=== PATIENT | female | born 1960 | race African-American/Black ===

== ENCOUNTER 2017-03-06 17:19 | Emergency (ER) | payer BC ==
--- NOTE | 2017-03-06 18:15 | ER Document Report ---
ED Medical Screen (RME) - General Mode of Arrival: Ambulatory Information source: Patient TRAVEL OUTSIDE OF THE [place] IN LAST 30 DAYS: No - General Chief Complaint: Feet Swelling Stated Complaint: EYE PAIN,URINARY ISSUES,LEGS AND ARM SWELLING Time Seen by Provider: 03/06/17 18:04 Notes: GENERAL: Alert, interacts well. No acute distress. EYES: Right greater than left conjuctival injection. LUNGS: Clear to auscultation bilaterally, no wheezes, rales, or rhonchi. No respiratory distress. HEART: Regular rate and rhythm. No murmurs, gallops, or rubs. EXTREMITIES: . 1+ pitting edema in BLE. PSYCH: Affect was somewhat flat. I have greeted and performed a rapid initial assessment of this patient. A comprehensive ED assessment and evaluation of the patient, analysis of test results and completion of the medical decision making process will be conducted by additional ED providers. (FARIDA FLORIAN) - HPI Notes: 03/06/17 18:21 56-year-old female with past medical history of hypertension presents with multiple complaints. Symptoms have been present now for quite a while though her latest complaint appears to be burning in both of her eyes right greater than left for which she has had for a couple of days. Apparently she has had a little discharge from that. She has also noticed over the last month or so increasing swelling in her legs and hands. She denies chest pain or breathing difficulty. Of note she is very hypertensive and has not seen a doctor in over a year. She had been on medication prior for her hypertension. In addition to this she has had some slight decreased memory over a long period of time, some long-standing urinary incontinence, and multiple generalized other complaints more so from her family who she states made her come to the emergency department. (NAPOLEON VELAZQUEZ) - Related Data Allergies/Adverse Reactions: prochlorperazine edisylate [From Compazine] Allergy (Severe, Verified 03/06/17 17:39) dystonic prochlorperazine maleate [From Compazine] Allergy (Severe, Verified 03/06/17 17: 39) dystonic Past Medical History - Past Medical History Cardiac Medical History: Reports: Hx Hypertension Denies: Hx Coronary Artery Disease Neurological Medical History: Denies: Hx Cerebrovascular Accident, Hx Migraine Endocrine Medical History: Denies: Hx Diabetes Mellitus Type 1, Hx Diabetes Mellitus Type 2 Renal/ Medical History: Denies: Hx Peritoneal Dialysis Past Surgical History: Reports: Hx Cholecystectomy - Immunizations Hx Diphtheria, Pertussis, Tetanus Vaccination: Yes - Vital signs Vitals: Temp Pulse Resp BP Pulse Ox 98.4 F 67 16 232/124 H 98 03/06/17 18:01 03/06/17 18:01 03/06/17 18:01 03/06/17 18:01 03/06/17 18:01 - Vital Signs Vital signs: Temp Pulse Resp BP Pulse Ox 98.4 F 67 16 232/124 H 98 03/06/17 18:01 03/06/17 18:01 03/06/17 18:01 03/06/17 18:01 03/06/17 18:01
--- NOTE | 2017-03-06 19:07 | RADIOLOGY REPORT (SQ) ---
EXAM DESCRIPTION: CHEST PA/LAT COMPLETED DATE/TIME: 03/06/2017 6:58 pm REASON FOR STUDY: HTN COMPARISON: 08/02/2011 EXAM PARAMETERS: NUMBER OF VIEWS: two views TECHNIQUE: Digital Frontal and Lateral radiographic views of the chest acquired. RADIATION DOSE: NA LIMITATIONS: none FINDINGS: LUNGS AND PLEURA: No opacities, masses or pneumothorax. No pleural effusion. MEDIASTINUM AND HILAR STRUCTURES: No masses or contour abnormalities. HEART AND VASCULAR STRUCTURES: Heart stable in size. No evidence for failure. BONES: No acute findings. HARDWARE: None in the chest. OTHER: No other significant finding. IMPRESSION: NO ACUTE CARDIOPULMONARY PROCESS. NO SIGNIFICANT CHANGE FROM PRIOR STUDY. TECHNICAL DOCUMENTATION: JOB ID: [id number] [employer]- All Rights Reserved
[2017-03-06 19:11] LABS: ABSOLUTE EOSINOPHILS # (AUTO) 0.2 10^3/uL (0.0-0.6); ABSOLUTE LYMPHOCYTES (AUTO) 2.1 10^3/uL (0.5-4.7); ABSOLUTE MONOCYTES (AUTO) 0.4 10^3/uL (0.1-1.4); ABSOLUTE NEUT (AUTO) 3.8 10^3/uL (1.7-8.2); BASOPHILS % (AUTO) 0.7 % (0-2); EOSINOPHILS % (AUTO) 2.6 % (0-6); HEMATOCRIT 41.5 % (36.0-47.0); HEMOGLOBIN 13.5 g/dL (12.0-15.5); LYMPHOCYTES % (AUTO) 32.1 % (13-45); MEAN CORPUSCULAR HEMOGLOBIN 27.2 pg (27.0-33.4); MEAN CORPUSCULAR HGB CONC 32.5 g/dL (32.0-36.0); MEAN CORPUSCULAR VOLUME 84 fl (80-97); MONOCYTES % (AUTO) 6.8 % (3-13); RED BLOOD COUNT 4.95 10^6/uL (3.72-5.28); SEGMENTED NEUTROPHILS % (AUTO) 57.8 % (42-78); WHITE BLOOD COUNT 6.5 10^3/uL (4.0-10.5)
[2017-03-06 19:23] LABS: APPEARANCE,URINE CLEAR; BILIRUBIN,URINE NEGATIVE (NEGATIVE); GLUCOSE, URINE NEGATIVE (NEGATIVE); KETONES,URINE NEGATIVE (NEGATIVE); LEUKOCYTE ESTERASE,URINE TRACE (NEGATIVE); NITRITE,URINE NEGATIVE (NEGATIVE); PROTEIN,URINE NEGATIVE (NEGATIVE); URINE SPECIFIC GRAVITY 1.015; UROBILINOGEN,URINE NEGATIVE mg/dL (<2.0)
[2017-03-06 19:27] LABS: ALANINE AMINOTRANSFERASE 43 U/L (9-52); ALBUMIN 4.5 g/dL (3.5-5.0); ALKALINE PHOSPHATASE 120 U/L (38-126); ANION GAP 12 (5-19); ASPARTATE AMINO TRANSFERASE 40 U/L (14-36); BILIRUBIN,DIRECT 0.3 mg/dL (0.0-0.4); BILIRUBIN,TOTAL 0.5 mg/dL (0.2-1.3); BLOOD UREA NITROGEN 14 mg/dL (7-20); CALCIUM 9.7 mg/dL (8.4-10.2); CARBON DIOXIDE 32 mmol/L (22-30); CHLORIDE 101 mmol/L (98-107); GLUCOSE 85 mg/dL (75-110); POTASSIUM 3.9 mmol/L (3.6-5.0); SODIUM 144.5 mmol/L (137-145); TOTAL PROTEIN 7.5 g/dL (6.3-8.2)
[2017-03-06] MEDS ORDERED: LABETALOL HCL INJ 20 MG/4 ML DISP.SYRIN IV ONE (21:53)
[2017-03-06] MEDS ORDERED: HYDROCHLOROTHIAZIDE 25 MG TABLET PO ONE (23:03)
[2017-03-06] MEDS ORDERED: LISINOPRIL 10 MG TABLET PO ONE (23:03)
--- NOTE | 2017-03-06 23:04 | EKG REPORT ---
SEVERITY:- ABNORMAL ECG - SINUS RHYTHM LVH WITH SECONDARY REPOLARIZATION ABNORMALITY : Confirmed by: Anson Crowder 06-Mar-2017 23:03:15
--- NOTE | 2017-03-06 23:13 | ER Document Report ---
ED General - General Chief Complaint: Feet Swelling Stated Complaint: EYE PAIN,URINARY ISSUES,LEGS AND ARM SWELLING Time Seen by Provider: 03/06/17 18:04 Mode of Arrival: Ambulatory Information source: Patient, Relative TRAVEL OUTSIDE OF THE [place] IN LAST 30 DAYS: No - HPI Onset: Other - months Associated symptoms: None Exacerbated by: Denies Relieved by: Denies Similar symptoms previously: Yes Recently seen / treated by doctor: No Notes: Has a history of hypertension for which she was on medication. She states that she was seen in the emergency department filled the prescription took them and then never followed up with the primary medical doctor. She does have [employer] she works on [employer]. - Related Data Allergies/Adverse Reactions: prochlorperazine edisylate [From Compazine] Allergy (Severe, Verified 03/06/17 17:39) dystonic prochlorperazine maleate [From Compazine] Allergy (Severe, Verified 03/06/17 17: 39) dystonic Past Medical History - General Information source: Patient, Relative - Social History Smoking Status: Never Smoker Frequency of alcohol use: None Drug Abuse: None Lives with: Family Family History: Reviewed & Not Pertinent Patient has suicidal ideation: No Patient has homicidal ideation: No - Past Medical History Cardiac Medical History: Reports: Hx Hypertension Denies: Hx Coronary Artery Disease Neurological Medical History: Denies: Hx Cerebrovascular Accident, Hx Migraine Endocrine Medical History: Denies: Hx Diabetes Mellitus Type 1, Hx Diabetes Mellitus Type 2 Renal/ Medical History: Denies: Hx Peritoneal Dialysis Psychiatric Medical History: Reports: None Infectious Medical History: Reports: None Past Surgical History: Reports: Hx Cholecystectomy - Immunizations Hx Diphtheria, Pertussis, Tetanus Vaccination: Yes Review of Systems - Review of Systems Constitutional: No symptoms reported EENT: Eye pain Cardiovascular: No symptoms reported Respiratory: No symptoms reported Gastrointestinal: No symptoms reported Genitourinary: Frequency Female Genitourinary: No symptoms reported Musculoskeletal: No symptoms reported Skin: No symptoms reported Hematologic/Lymphatic: No symptoms reported Neurological/Psychological: No symptoms reported Physical Exam - Vital signs Vitals: Temp Pulse Resp BP Pulse Ox 98.4 F 67 16 232/124 H 98 03/06/17 18:01 03/06/17 18:01 03/06/17 18:01 03/06/17 18:01 03/06/17 18:01 Interpretation: Hypertensive - Notes Notes: PHYSICAL EXAMINATION: GENERAL: Well-appearing, well-nourished and in no acute distress. HEAD: Atraumatic, normocephalic. EYES: Pupils equal round and reactive to light, extraocular movements intact, conjunctiva are normal. ENT: Nares patent, oropharynx clear without exudates. Moist mucous membranes. NECK: Normal range of motion, supple without lymphadenopathy LUNGS: Breath sounds clear to auscultation bilaterally and equal. No wheezes rales or rhonchi. HEART: Regular rate and rhythm without murmurs ABDOMEN: Soft, nontender, nondistended abdomen. No guarding, no rebound. No masses appreciated. Female : deferred Musculoskeletal: Normal range of motion, no pitting or edema. No cyanosis. NEUROLOGICAL: Cranial nerves grossly intact. Normal speech, normal gait. Normal sensory, motor exams PSYCH: Normal mood, normal affect. SKIN: Warm, Dry, normal turgor, no rashes or lesions noted. Course - Re-evaluation Re-evalutation: 03/06/17 23:22 Blood pressure came down to 186/96 with a heart rate of 59. I did place the patient back on her lisinopril HCTZ. I did go over the effects of uncontrolled hypertension including blindness, cardiac issues, end-stage renal disease with hemodialysis, as well as stroke. She and daughter verbalized understanding. I did tell the patient to call the primary medical doctor whose name I gave her tomorrow morning for follow-up appointment. - Vital Signs Vital signs: Temp Pulse Resp BP Pulse Ox 98.4 F 67 17 208/103 H 96 03/06/17 18:01 03/06/17 18:01 03/06/17 22:48 03/06/17 22:48 03/06/17 22:48 - Laboratory Result Diagrams: 03/06/17 18:38 03/06/17 18:38 Laboratory results interpreted by me: 03/06/17 03/06/17 18:38 18:38 Carbon Dioxide 32 H AST 40 H Ur Leukocyte Esterase TRACE H - Diagnostic Test Radiology reviewed: Image reviewed, Reports reviewed Radiology results interpreted by me: 03/06/17 23:24 no acute findings on CXR - EKG Interpretation by Me EKG shows normal: Sinus rhythm Rate: Bradycardia Rhythm: NSR Voltage: Consistant with LVH When compared to previous EKG there are: No significant change - compared with EKG 05/09/2015 Discharge - Discharge Clinical Impression: Medical non-compliance, Uncontrolled hypertension Condition: Stable Disposition: HOME, SELF-CARE Instructions: High Blood Pressure, Requiring Treatment ([facility]) Prescriptions: Lisinopril/Hydrochlorothiazide [Lisinopril-Hctz 20-25 mg Tab] 1 each PO DAILY # 30 tablet Forms: Elevated Blood Pressure Referrals: JARAD ANDRADE DO [NO LOCAL MD] - Follow up tomorrow (Call tomorrow for an appointrment)
[2017-03-06 23:43] VITALS: BP 206/108
== END 2017-03-06 23:50 | disposition home or self-care (01) ==
LOC: ER 17:19
DX: I10 Essential (primary) hypertension (principal); M79.89 Other specified soft tissue disorders; Z90.49 Acquired absence of other specified parts of digestive tract; Z91.14 Patient's other noncompliance with medication regimen
CPT/HCPCS: 93005; 99284; 36415; 85025; 80053; 81001; 71020; 93010; J3490

== ENCOUNTER 2017-03-16 10:07 | Emergency (ER) | payer BC ==
[2017-03-16 11:12] LABS: ABSOLUTE EOSINOPHILS # (AUTO) 0.2 10^3/uL (0.0-0.6); ABSOLUTE LYMPHOCYTES (AUTO) 1.5 10^3/uL (0.5-4.7); ABSOLUTE MONOCYTES (AUTO) 0.4 10^3/uL (0.1-1.4); ABSOLUTE NEUT (AUTO) 3.7 10^3/uL (1.7-8.2); BASOPHILS % (AUTO) 0.7 % (0-2); EOSINOPHILS % (AUTO) 3.4 % (0-6); HEMATOCRIT 40.5 % (36.0-47.0); HEMOGLOBIN 13.3 g/dL (12.0-15.5); HGB HCT DIFFERENCE -0.6; LYMPHOCYTES % (AUTO) 25.5 % (13-45); MEAN CORPUSCULAR HEMOGLOBIN 27.5 pg (27.0-33.4); MEAN CORPUSCULAR HGB CONC 32.8 g/dL (32.0-36.0); MEAN CORPUSCULAR VOLUME 84 fl (80-97); MONOCYTES % (AUTO) 7.2 % (3-13); RED BLOOD COUNT 4.83 10^6/uL (3.72-5.28); RED CELL DISTRIBUTION WIDTH 13.5 % (11.5-14.0); SEGMENTED NEUTROPHILS % (AUTO) 63.2 % (42-78); WHITE BLOOD COUNT 5.8 10^3/uL (4.0-10.5)
[2017-03-16 11:14] LABS: APPEARANCE,URINE CLEAR; BILIRUBIN,URINE NEGATIVE (NEGATIVE); GLUCOSE, URINE NEGATIVE (NEGATIVE); KETONES,URINE NEGATIVE (NEGATIVE); LEUKOCYTE ESTERASE,URINE NEGATIVE (NEGATIVE); NITRITE,URINE NEGATIVE (NEGATIVE); PROTEIN,URINE NEGATIVE (NEGATIVE); URINE SPECIFIC GRAVITY 1.004; UROBILINOGEN,URINE NEGATIVE mg/dL (<2.0)
[2017-03-16 11:33] LABS: ALANINE AMINOTRANSFERASE 45 U/L (9-52); ALKALINE PHOSPHATASE 121 U/L (38-126); ANION GAP 8 (5-19); ASPARTATE AMINO TRANSFERASE 37 U/L (14-36); BILIRUBIN,DIRECT 0.1 mg/dL (0.0-0.4); BILIRUBIN,TOTAL 0.5 mg/dL (0.2-1.3); BLOOD UREA NITROGEN 15 mg/dL (7-20); CALCIUM 10.2 mg/dL (8.4-10.2); CARBON DIOXIDE 35 mmol/L (22-30); CHLORIDE 101 mmol/L (98-107); CREATINE KINASE 104 U/L (30-135); GLUCOSE 82 mg/dL (75-110); POTASSIUM 3.7 mmol/L (3.6-5.0); SODIUM 144.3 mmol/L (137-145); TOTAL PROTEIN 6.7 g/dL (6.3-8.2)
[2017-03-16] MEDS ORDERED: LIDOCAINE 5% (700 MG) TRANSDERMAL ADH..PATCH TP ONE (12:38)
--- NOTE | 2017-03-16 12:40 | ER Document Report ---
ED General - General Chief Complaint: Thigh Pain Stated Complaint: LEG PAIN Time Seen by Provider: 03/16/17 11:28 TRAVEL OUTSIDE OF THE [place] IN LAST 30 DAYS: No - HPI Patient complains to provider of: Right thigh pain Notes: Patient coming in for evaluation of right thigh pain. Patient states ongoing since last night patient states currently pain 3 states last night she had an episode of right thigh pain making it unable for her to walk. Patient denies any Lipitor orOther medications that may cause rhabdomyolysis. Patient resting comfortably upon my evaluation per - Related Data Allergies/Adverse Reactions: prochlorperazine edisylate [From Compazine] Allergy (Severe, Verified 03/16/17 10:08) dystonic prochlorperazine maleate [From Compazine] Allergy (Severe, Verified 03/16/17 10: 08) dystonic Past Medical History - Social History Smoking Status: Never Smoker Frequency of alcohol use: None Drug Abuse: None Family History: Reviewed & Not Pertinent Patient has suicidal ideation: No Patient has homicidal ideation: No - Past Medical History Cardiac Medical History: Reports: Hx Hypertension Denies: Hx Coronary Artery Disease Neurological Medical History: Denies: Hx Cerebrovascular Accident, Hx Migraine Endocrine Medical History: Denies: Hx Diabetes Mellitus Type 1, Hx Diabetes Mellitus Type 2 Renal/ Medical History: Denies: Hx Peritoneal Dialysis Past Surgical History: Reports: Hx Cholecystectomy - Immunizations Hx Diphtheria, Pertussis, Tetanus Vaccination: Yes Review of Systems - Review of Systems Constitutional: No symptoms reported EENT: No symptoms reported Cardiovascular: No symptoms reported Respiratory: No symptoms reported Gastrointestinal: No symptoms reported Genitourinary: No symptoms reported Female Genitourinary: No symptoms reported Musculoskeletal: Other - myalagia Skin: No symptoms reported Hematologic/Lymphatic: No symptoms reported Neurological/Psychological: No symptoms reported -: Yes All other systems reviewed and negative Physical Exam - Vital signs Vitals: Temp Pulse Resp BP Pulse Ox 98.2 F 61 14 216/86 H 99 03/16/17 10:14 03/16/17 10:14 03/16/17 10:14 03/16/17 10:14 03/16/17 10:14 Interpretation: Normal - General General appearance: Appears well, Alert - HEENT Head: Normocephalic, Atraumatic Eyes: Normal Pupils: PERRL - Respiratory Respiratory status: No respiratory distress Chest status: Nontender Breath sounds: Normal Chest palpation: Normal - Cardiovascular Rhythm: Regular Heart sounds: Normal auscultation Murmur: No - Abdominal Inspection: Normal Distension: No distension Bowel sounds: Normal Tenderness: Nontender Organomegaly: No organomegaly - Back Back: Normal, Nontender - Extremities General upper extremity: Normal inspection, Nontender, Normal color, Normal ROM , Normal temperature General lower extremity: Normal inspection, Nontender, Normal color, Normal ROM , Normal temperature, Normal weight bearing, Other - No trauma contusion noted to clinical signs on evaluation of the right upper thigh. Patient has popliteal pulses intact no calf tenderness no swelling of the leg consistent with DVT. - Neurological Neuro grossly intact: Yes Cognition: Normal Orientation: AAOx4 Amor Coma Scale Eye Opening: Spontaneous [place] Coma Scale Verbal: Oriented [place] Coma Scale Motor: Obeys Commands [place] Coma Scale Total: 15 Speech: Normal Motor strength normal: LUE, RUE, LLE, RLE Sensory: Normal - Psychological Associated symptoms: Normal affect, Normal mood - Skin Skin Temperature: Warm Skin Moisture: Dry Skin Color: Normal Course - Re-evaluation Re-evalutation: 03/16/17 17:24 Patient coming in for evaluation of right thigh pain. Patient will be discharged on follow-up primary care physician noted signs of critical etiology. More likely underlying muscle skeletal issues such as muscle spasm. - Vital Signs Vital signs: Temp Pulse Resp BP Pulse Ox 98.2 F 61 14 169/94 H 99 03/16/17 10:14 03/16/17 10:14 03/16/17 13:00 03/16/17 13:00 03/16/17 13:00 - Laboratory Result Diagrams: 03/16/17 10:45 03/16/17 10:45 Laboratory results interpreted by me: 03/16/17 10:45 Carbon Dioxide 35 H Est GFR (Non-Af Amer) 58 L AST 37 H Discharge - Discharge Clinical Impression: Thigh pain Qualifiers: Laterality: right Qualified Code(s): M79.651 - Pain in right thigh Condition: Good Disposition: HOME, SELF-CARE Instructions: Muscle Strain ([facility]), Myalagia (Muscle Pain) ([facility]) Additional Instructions: Laboratory studies today did not reveal any signs of significant pathology for your thigh pain. Your examination also does not reveal any critical pathology. Would recommend using the Lidoderm patch that we gave you for pain he may also take Tylenol and Motrin together to aid in pain if it becomes severe again. Return to ER symptoms worsen. Forms: Return to Work Referrals: ROSALVA DIAMOND PA-C [Primary Care Provider] - Follow up in 1 week
[2017-03-16 13:23] VITALS: BP 169/94
== END 2017-03-16 13:20 | disposition home or self-care (01) ==
LOC: ER 10:07
DX: M79.1 Myalgia (principal); I10 Essential (primary) hypertension; Z88.8 Allergy status to other drugs, medicaments and biological substances
CPT/HCPCS: 36415; 80053; 81001; 82550; 83735; 85025; 99283

== ENCOUNTER 2018-05-12 20:16 | Emergency (ER) | payer BC ==
--- NOTE | 2018-05-12 22:14 | RADIOLOGY REPORT (SQ) ---
EXAM DESCRIPTION: XR HAND 3 OR MORE VIEWS COMPLETED DATE/TME: 05/12/2018 21:02 CLINICAL HISTORY: 57 years, Female, pain, swelling COMPARISON: None. NUMBER OF VIEWS: TECHNIQUE: LIMITATIONS: None. FINDINGS: There is questionable subtle fracture involving the base of the distal phalanx of the fourth finger, laterally. There is soft tissue swelling involving the fourth finger. Mineralization of bone appears normal. IMPRESSION: Questionable fracture of the base of the distal phalanx of the fourth finger, laterally. Please correlate clinically. copyright 2010 [employer]- All Rights Reserved
[2018-05-12] MEDS ORDERED: ACETAMINOPHEN 325 MG TABLET PO ONE (22:47)
[2018-05-12] MEDS ORDERED: IBUPROFEN 600 MG TABLET PO ONE (22:47)
--- NOTE | 2018-05-12 22:53 | ER Document Report ---
ED General - General Chief Complaint: Hand Pain Stated Complaint: RIGHT HAND PAIN Time Seen by Provider: 05/12/18 21:02 Primary Care Provider: AMARILIS DESIR DO [ACTIVE STAFF] - Follow up in 3-5 days Notes: Patient is a 57-year-old female without chronic medical problems beyond essential hypertension who presents today complaining of pain to her right fourth finger that has been ongoing for the past week. Patient states that approximately 1 week ago she noted a lot of bruising along the lateral aspect of the finger. She states that touching the area or moving it worsens a dull, throbbing, constant pain. She has not tried anything for improving the pain. She is uncertain of how she would have injured the finger although notes that she does work daily as a aircraft cleaner. No history of similar injury in the past. She has not seen her general physician regarding today's concerns. She denies injuries to any other locations. She is left-hand dominant. TRAVEL OUTSIDE OF THE [place] IN LAST 30 DAYS: No - Related Data Allergies/Adverse Reactions: prochlorperazine edisylate [From Compazine] Allergy (Severe, Verified 03/16/17 10:08) dystonic prochlorperazine maleate [From Compazine] Allergy (Severe, Verified 03/16/17 10:08) dystonic Past Medical History - General Information source: Patient - Social History Smoking Status: Never Smoker Frequency of alcohol use: None Drug Abuse: None Lives with: Spouse/Significant other Family History: Reviewed & Not Pertinent Patient has suicidal ideation: No Patient has homicidal ideation: No - Past Medical History Cardiac Medical History: Reports: Hx Hypertension Denies: Hx Coronary Artery Disease Neurological Medical History: Denies: Hx Cerebrovascular Accident, Hx Migraine Endocrine Medical History: Denies: Hx Diabetes Mellitus Type 1, Hx Diabetes Mellitus Type 2 Renal/ Medical History: Denies: Hx Peritoneal Dialysis Past Surgical History: Reports: Hx Cholecystectomy - Immunizations Hx Diphtheria, Pertussis, Tetanus Vaccination: Yes Review of Systems - Review of Systems Notes: Constitutional: Negative for fever. Eyes: Negative for visual changes. ENT: Negative for facial injury Cardiovascular: Negative for chest injury. Respiratory: Negative for shortness of breath. Gastrointestinal: Negative for abdominal injury. Genitourinary: Negative for genital injury Musculoskeletal: Positive for ring finger injury Skin: Negative for laceration/abrasions. Neurological: Negative for head injury. Physical Exam - Vital signs Vitals: Temp Pulse Resp BP Pulse Ox 97.9 F 74 16 264/130 H 99 05/12/18 20:29 05/12/18 20:29 05/12/18 20:29 05/12/18 20:29 05/12/18 20:29 Interpretation: Hypertensive - Chronic history Notes: PHYSICAL EXAMINATION: GENERAL: Well-appearing, well-nourished and in no acute distress. HEAD: Atraumatic, normocephalic. EYES: sclera anicteric, conjunctiva are normal. ENT: Moist mucous membranes. NECK: Normal range of motion LUNGS: Normal work of breathing HEART: 2+ radial pulses bilaterally EXTREMITIES: no pitting or edema. Bruising noted along the right fourth finger. Full flexion extension at the DIP, PIP and MCP against resistance. NEUROLOGICAL: No focal neurological deficits. Moves all extremities spontaneously and on command. PSYCH: Normal mood, normal affect. SKIN: Warm, Dry, normal turgor, no rashes or lesions noted. Course - Re-evaluation Re-evalutation: 05/12/18 22:56 Patient presents with 1 week of pain to the left ring finger. She does not know how the injury occurred. She has noted bruising along the lateral aspect of the finger. X-ray does show a small, nondisplaced phalanx fracture. Patient has full flexion extension at the DIP, PIP and MCP including against resistance. No additional injuries or concerns. No neurovascular compromise. Patient has been placed in a finger splint, NSAIDs and Tylenol as needed for pain control. Orthopedic follow-up recommended. At this time will discharge with return precautions and follow-up recommendations. Verbal discharge instructions given a the bedside and opportunity for questions given. Medication warnings reviewed. Patient is in agreement with this plan and has verbalized understanding of return precautions and the need for primary care follow-up in the next 24-72 hours. - Vital Signs Vital signs: Temp Pulse Resp BP Pulse Ox 98.5 F 75 18 209/103 H 100 05/12/18 23:32 05/12/18 23:32 05/12/18 23:32 05/12/18 23:32 05/12/18 23:32 - Diagnostic Test Radiology reviewed: Image reviewed, Reports reviewed Radiology results interpreted by me: 05/13/18 00:42 Right hand x-ray: Distal phalanx of the right fourth digit Discharge - Discharge Clinical Impression: Fracture of phalanx of right ring finger Qualifiers: Encounter type: initial encounter Fracture type: closed Phalanx: distal Fracture alignment: nondisplaced Qualified Code(s): S62.664A - Nondisplaced fracture of distal phalanx of right ring finger, initial encounter for closed fracture Condition: Good Disposition: HOME, SELF-CARE Additional Instructions: Your x-ray shows a small fracture of your fourth finger on the right. Please wear the splint that has been applied until you follow-up with orthopedic surgery. For your pain: Take ibuprofen 600 mg and acetaminophen 1000 mg every 6 hours together as needed for pain. Return if your worsening pain, numbness, tingling or any other symptoms that are worrisome to you. Forms: Return to Work Referrals: AMARILIS DESIR DO [ACTIVE STAFF] - Follow up in 3-5 days
[2018-05-12 23:32] VITALS: BP 209/103
== END 2018-05-12 23:25 | disposition home or self-care (01) ==
LOC: ER 20:16
DX: S62.664A Nondisplaced fracture of distal phalanx of right ring finger, initial encounter for closed fracture (principal); X58.XXXA Exposure to other specified factors, initial encounter; I10 Essential (primary) hypertension; Z90.49 Acquired absence of other specified parts of digestive tract
CPT/HCPCS: 99283

== ENCOUNTER 2018-08-03 11:15 | Emergency (ER) | payer BC ==
[2018-08-03] MEDS ORDERED: LISINOPRIL 10 MG TABLET PO ONE (12:00)
--- NOTE | 2018-08-03 12:02 | ER Document Report ---
ED Medical Screen (RME) - General Chief Complaint: Arm Pain Stated Complaint: SHOULDER AND ARM PAIN Time Seen by Provider: 08/03/18 11:58 Mode of Arrival: Ambulatory Information source: Patient Notes: Patient presents complaining of right shoulder and upper arm pain for the past 2 days. Patient is left-hand dominant and denies any right shoulder injury. Patient denies any chest pain shortness of breath or headache. Patient does complain of right upper back pain as well. Patient does have a history of hypertension and has been off of medications for about a year. Patient states she used to take lisinopril for her hypertension. I have greeted and performed a rapid initial assessment of this patient. A comprehensive ED assessment and evaluation of the patient, analysis of test re sults and completion of the medical decision making process will be conducted by additional ED providers. TRAVEL OUTSIDE OF THE [place] IN LAST 30 DAYS: No - Related Data Allergies/Adverse Reactions: prochlorperazine edisylate [From Compazine] Allergy (Severe, Verified 08/03/18 11:16) dystonic prochlorperazine maleate [From Compazine] Allergy (Severe, Verified 08/03/18 11:16) dystonic Past Medical History - Social History Chew tobacco use (# tins/day): No Frequency of alcohol use: None Drug Abuse: None - Past Medical History Cardiac Medical History: Reports: Hx Hypertension Denies: Hx Coronary Artery Disease Neurological Medical History: Denies: Hx Cerebrovascular Accident, Hx Migraine Endocrine Medical History: Denies: Hx Diabetes Mellitus Type 1, Hx Diabetes Mellitus Type 2 Renal/ Medical History: Denies: Hx Peritoneal Dialysis Past Surgical History: Reports: Hx Cholecystectomy - Immunizations Hx Diphtheria, Pertussis, Tetanus Vaccination: Yes Physical Exam - Vital signs Vitals: Temp Pulse BP Pulse Ox 98.9 F 70 239/109 H 96 08/03/18 11:33 08/03/18 11:33 08/03/18 11:33 08/03/18 11:33 - General Notes: Right shoulder joint, right upper arm and right upper thoracic back tenderness. Course - Vital Signs Vital signs: Temp Pulse Resp BP Pulse Ox 98.9 F 70 239/109 H 96 08/03/18 11:33 08/03/18 11:33 08/03/18 11:33 08/03/18 11:33
--- NOTE | 2018-08-03 12:56 | RADIOLOGY REPORT (SQ) ---
EXAM DESCRIPTION: CHEST 2 VIEWS COMPLETED DATE/TIME: 08/03/2018 12:46 pm REASON FOR STUDY: R shoulder, r upper back pain COMPARISON: 03/06/2017 EXAM PARAMETERS: NUMBER OF VIEWS: two views TECHNIQUE: Digital Frontal and Lateral radiographic views of the chest acquired. RADIATION DOSE: NA LIMITATIONS: The retrosternal space is partially obscured by the patient's arms. FINDINGS: LUNGS AND PLEURA: No opacities, masses or pneumothorax. No pleural effusion. MEDIASTINUM AND HILAR STRUCTURES: No masses or contour abnormalities. HEART AND VASCULAR STRUCTURES: Stable appearance. Cardiomegaly. No evidence for failure. BONES: No acute findings. HARDWARE: None in the chest. OTHER: No other significant finding. IMPRESSION: 1. No significant interval changes since the prior examination dated 03/06/2017. No ac [place] findings. 2. Cardiomegaly, stable finding. TECHNICAL DOCUMENTATION: JOB ID: [id number] [email or web address]- All Rights Reserved Reading location - IP/workstation name: [email or web address]
[2018-08-03 13:33] LABS: ABSOLUTE BASOPHILS # (AUTO) 0.1 10^3/uL (0.0-0.2); ABSOLUTE EOSINOPHILS # (AUTO) 0.2 10^3/uL (0.0-0.6); ABSOLUTE LYMPHOCYTES (AUTO) 1.5 10^3/uL (0.5-4.7); ABSOLUTE MONOCYTES (AUTO) 0.4 10^3/uL (0.1-1.4); ABSOLUTE NEUT (AUTO) 3.2 10^3/uL (1.7-8.2); BASOPHILS % (AUTO) 1.1 % (0-2); EOSINOPHILS % (AUTO) 3.2 % (0-6); HEMATOCRIT 40.8 % (36.0-47.0); HEMOGLOBIN 13.3 g/dL (12.0-15.5); LYMPHOCYTES % (AUTO) 28.7 % (13-45); MEAN CORPUSCULAR HEMOGLOBIN 27.2 pg (27.0-33.4); MEAN CORPUSCULAR HGB CONC 32.6 g/dL (32.0-36.0); MEAN CORPUSCULAR VOLUME 84 fl (80-97); MONOCYTES % (AUTO) 7.2 % (3-13); PLATELET COUNT 203 10^3/uL (150-450); RED BLOOD COUNT 4.88 10^6/uL (3.72-5.28); RED CELL DISTRIBUTION WIDTH 14.5 % (11.5-14.0); SEGMENTED NEUTROPHILS % (AUTO) 59.8 % (42-78); TOTAL CELLS COUNTED % (AUTO) 100 %; WHITE BLOOD COUNT 5.4 10^3/uL (4.0-10.5)
[2018-08-03 13:49] LABS: ALANINE AMINOTRANSFERASE 24 U/L (9-52); ALBUMIN 4.3 g/dL (3.5-5.0); ALKALINE PHOSPHATASE 110 U/L (38-126); ANION GAP 9 (5-19); ASPARTATE AMINO TRANSFERASE 31 U/L (14-36); BILIRUBIN,DIRECT 0.2 mg/dL (0.0-0.4); BILIRUBIN,TOTAL 0.8 mg/dL (0.2-1.3); BLOOD UREA NITROGEN 14 mg/dL (7-20); CARBON DIOXIDE 31 mmol/L (22-30); CHLORIDE 100 mmol/L (98-107); GLUCOSE 82 mg/dL (75-110); SODIUM 140.4 mmol/L (137-145); TOTAL PROTEIN 7.5 g/dL (6.3-8.2)
[2018-08-03] MEDS ORDERED: CLONIDINE HCL 0.1 MG TABLET PO ONE (14:14)
[2018-08-03] MEDS ORDERED: ACETAMINOPHEN 325 MG TABLET PO ONE (14:14)
--- NOTE | 2018-08-03 14:17 | ER Document Report ---
ED Extremity Problem, Upper - General Chief Complaint: Arm Pain Stated Complaint: SHOULDER AND ARM PAIN Time Seen by Provider: 08/03/18 11:58 Mode of Arrival: Ambulatory Information source: Patient TRAVEL OUTSIDE OF THE [place] IN LAST 30 DAYS: No - HPI Patient complains to provider of: Pain, Right, Shoulder Notes: Patient here with complaints of right shoulder pain. Pain has been present for the last 2 days. Pain is worse with movement and palpation. She denies any traumatic injury or fall. She denies any numbness, tingling, weakness. No redness or fever. Patient is also noted to have elevated blood pressure today. The patient has a history of hypertension, she takes lisinopril but has not taken it for over a year. States that she has insurance, but does not have a primary care doctor and has not tried to get any refills. She denies any chest pain or shortness of breath, severe headache, blurred or loss vision, dizziness, numbness, tingling, weakness, abdominal pain, nausea, vomiting, diarrhea. Pain is moderate, constant, worse with movement, better with rest. No other specific complaints at this time. - Related Data Allergies/Adverse Reactions: prochlorperazine edisylate [From Compazine] Allergy (Severe, Verified 08/03/18 11:16) dystonic prochlorperazine maleate [From Compazine] Allergy (Severe, Verified 08/03/18 11:16) dystonic Past Medical History - General Information source: Patient - Social History Smoking Status: Never Smoker Chew tobacco use (# tins/day): No Frequency of alcohol use: None Drug Abuse: None Family History: Reviewed & Not Pertinent Patient has suicidal ideation: No Patient has homicidal ideation: No - Past Medical History Cardiac Medical History: Reports: Hx Hypertension Denies: Hx Coronary Artery Disease Neurological Medical History: Denies: Hx Cerebrovascular Accident, Hx Migraine Endocrine Medical History: Denies: Hx Diabetes Mellitus Type 1, Hx Diabetes Mellitus Type 2 Renal/ Medical History: Denies: Hx Peritoneal Dialysis Past Surgical History: Reports: Hx Cholecystectomy - Immunizations Hx Diphtheria, Pertussis, Tetanus Vaccination: Yes Review of Systems - Review of Systems -: Yes All other systems reviewed and negative Physical Exam - Vital signs Vitals: Temp Pulse BP Pulse Ox 98.9 F 70 239/109 H 96 08/03/18 11:33 08/03/18 11:33 08/03/18 11:33 08/03/18 11:33 - Notes Notes: GENERAL: alert, cooperative, nontoxic, no distress. HEAD: normocephalic, atraumatic EYES: conjunctiva pink without discharge, no external redness or swelling. Pupils are equal, round, reactive to light. EARS: no external swelling, no external redness NOSE: atraumatic, no external swelling MOUTH/THROAT: mucous membranes moist and pink, posterior pharynx without erythema, swelling, exudate. No trismus or drooling. NECK: soft, supple, full range of motion, no meningismus. No midline tenderness step-offs or crepitus. CHEST: no distress, lungs clear and equal throughout. No wheezing, rales, rhon chi. CARDIAC: regular rate and rhythm, no murmur, normal capillary refill, normal pulses. No peripheral edema noted. BACK: full range of motion, no CVA tenderness. EXTREMITIES: full range of motion of all extremities. No redness, no swelling. Tenderness palpation of the right anterior shoulder. Pain with movement. Normal strength. Normal pulse and sensation distally. NEURO: alert and oriented x 3, cranial nerves II through XII are grossly intact. Upper and lower extremities are equal throughout. Normal sensation. No focal deficits, full range of motion of all extremities. normal finger to nose. PYSCH: appropriate mood, affect. Patient is cooperative. SKIN: pink, warm, dry, no rash. Course - Re-evaluation Re-evalutation: 08/03/18 16:21 Patient is nontoxic-appearing with stable vitals. Patient here with complaints of some right shoulder pain for the last few days. Pain is reproducible with palpation and movement. No neck tenderness. She denies any chest pain or shortness of breath. Patient is noted to be hypertensive as well. She has a history of hypertension, but has not been on her lisinopril for the last year. Again no chest pain or shortness of breath. The pain is reproducible with movement and palpation, therefore I have a low suspicion that this is her ACS equivalent. EKG shows some inverted T waves in V5, V6 which is unchanged from previous EKGs. Troponin is negative. Chest x-ray is negative. X-ray of the right shoulder shows no acute abnormalities. Patient was given lisinopril as well as a dose of clonidine here in the emergency department her blood pressure has significantly improved. This point the patient will be discharged home with prescription for lisinopril. Referral to primary care as well as orthopedics. Follow-up sooner if she develops any worsening pain, numbness, tingling, weakness, chest pain or shortness of breath, fever, or for any further concerns. The patient's emergency department workup and current diagnosis were explained to the patient and or family. Follow-up instructions were provided. Medications if prescribed were discussed. Instructions for when to return to the emergency department including specific worrisome symptoms were discussed with the patient and/or family. - Vital Signs Vital signs: Temp Pulse Resp BP Pulse Ox 98.9 F 70 127/77 H 96 08/03/18 11:33 08/03/18 11:33 08/03/18 16:01 08/03/18 11:33 - Laboratory Result Diagrams: 08/03/18 13:22 08/03/18 13:22 Laboratory results interpreted by me: 08/03/18 08/03/18 13:22 13:22 RDW 14.5 H Carbon Dioxide 31 H - Diagnostic Test Radiology reviewed: Image reviewed, Reports reviewed - Chest x-ray negative, shoulder x-ray negative. - EKG Interpretation by Id EKG shows normal: Sinus rhythm, [place], Intervals, QRS Complexes Rate: Normal When compared to previous EKG there are: Other - Rate 56. Inverted T wave in V5, V6 which is unchanged from previous EKG. No STEMI. Discharge - Discharge Clinical Impression: Right shoulder pain Qualifiers: Chronicity: acute Qualified Code(s): M25.511 - Pain in right shoulder Hypertension Qualifiers: Hypertension type: unspecified Qualified Code(s): I10 - Essential (primary) hypertension Condition: Stable Disposition: HOME, SELF-CARE Instructions: High Blood Pressure ([facility]), Shoulder Injury ([facility]) Additional Instructions: Take medication as prescribed. Monitor your blood pressure. Get established with primary care regarding your blood pressure. Follow-up with orthopedics if your shoulder continues to her. Return to emergency department for chest pain, shortness of breath, numbness, Carina, weakness, any further concerns. Prescriptions: Lisinopril [Prinivil 10 mg Tablet] 10 mg PO DAILY #30 tablet Forms: Elevated Blood Pressure Referrals: [facility] [Provider Group] - Follow up as needed TIMMY RAY MD [ACTIVE STAFF] - Follow up as needed
--- NOTE | 2018-08-03 15:47 | RADIOLOGY REPORT (SQ) ---
EXAM DESCRIPTION: SHOULDER RIGHT 2 OR MORE VIEWS COMPLETED DATE/TIME: 08/03/2018 3:00 pm REASON FOR STUDY: PAIN COMPARISON: None. NUMBER OF VIEWS: Three views. TECHNIQUE: Internal rotation, external rotation, and Y view images acquired of the right shoulder. LIMITATIONS: None. FINDINGS: MINERALIZATION: Normal. BONES: No acute fracture or dislocation. No worrisome bone lesions. JOINTS: No right glenohumeral dislocation. No widening at the acromioclavicular joint VISUALIZED LUNGS AND RIBS: No pneumothorax. No rib fracture. SOFT TISSUES: No radiopaque foreign body. OTHER: No other significant finding. IMPRESSION: NEGATIVE STUDY OF THE RIGHT SHOULDER. NO RADIOGRAPHIC EVIDENCE OF ACUTE INJURY. TECHNICAL DOCUMENTATION: JOB ID: [id number] [employer]- All Rights Reserved Reading location - IP/workstation name: [email or web address]
[2018-08-03 16:26] VITALS: BP 141/80
--- NOTE | 2018-08-03 22:34 | EKG REPORT ---
SEVERITY:- ABNORMAL ECG - SINUS RHYTHM PROBABLE LEFT ATRIAL ABNORMALITY LEFT VENTRICULAR HYPERTROPHY ABNORMAL T, CONSIDER ISCHEMIA, LATERAL LEADS ANTERIOR ST ELEVATION, PROBABLY DUE TO LVH : Confirmed by: Bonnie Berman MD 03-Aug-2018 22:33:10
== END 2018-08-03 16:38 | disposition home or self-care (01) ==
LOC: ER 11:15
DX: M79.601 Pain in right arm (principal); M25.511 Pain in right shoulder; I10 Essential (primary) hypertension; Z90.49 Acquired absence of other specified parts of digestive tract
CPT/HCPCS: 36415; 71046; 80053; 84484; 85025; 93005; 93010; 99284

== ENCOUNTER 2020-03-02 08:46 | Emergency (ER) | payer BC ==
--- NOTE | 2020-03-02 10:31 | ER Document Report ---
Entered by CANDIS ROBERTS SCRIBE 03/02/20 1022 Acting as scribe for:SADIA MELTON MD ED Oral Problem - General Chief Complaint: Toothache Stated Complaint: TOOTH PAIN Time Seen by Provider: 03/02/20 10:09 Mode of Arrival: Ambulatory Information source: Patient Notes: This 59 year old female patient presents to the ED today with complaints of left lower tooth pain that started x2 days ago. Pain is worse with heat, cold, or talking. She has not seen a dentist. Denies any other symptoms. Per nursing, patient has a history of hypertension and has been out of her medications for x1 month; she does not have a PCP and usually has her medications refilled from the ED. TRAVEL OUTSIDE OF THE [place] IN LAST 30 DAYS: No - Related Data Allergies/Adverse Reactions: prochlorperazine edisylate [From Compazine] Allergy (Severe, Verified 08/03/18 11:16) dystonic prochlorperazine maleate [From Compazine] Allergy (Severe, Verified 08/03/18 11:16) dystonic Past Medical History - General Information source: Patient, [facility] Records - Social History Smoking Status: Never Smoker Cigarette use (# per day): No Chew tobacco use (# tins/day): No Smoking Education Provided: No Frequency of alcohol use: None Family History: Reviewed & Not Pertinent - Past Medical History Cardiac Medical History: Reports: Hx Hypertension Past Surgical History: Reports: Hx Cholecystectomy - Immunizations Hx Diphtheria, Pertussis, Tetanus Vaccination: Yes Review of Systems - Review of Systems Constitutional: No symptoms reported EENT: See HPI, Dental problem Cardiovascular: No symptoms reported Respiratory: No symptoms reported Gastrointestinal: No symptoms reported Genitourinary: No symptoms reported Female Genitourinary: No symptoms reported Musculoskeletal: No symptoms reported Skin: No symptoms reported Hematologic/Lymphatic: No symptoms reported Neurological/Psychological: No symptoms reported -: Yes All other systems reviewed and negative Physical Exam - Vital signs Vitals: Temp Pulse Resp BP Pulse Ox 98.4 F 70 18 213/107 H 99 03/02/20 09:00 03/02/20 09:00 03/02/20 09:00 03/02/20 09:00 03/02/20 09:00 Interpretation: Hypertensive - General General appearance: Alert In distress: None - HEENT Head: Normocephalic, Atraumatic Eyes: Normal Pupils: PERRL Mouth/Lips: Other - General poor dentition, left lower rotten teeth - Respiratory Respiratory status: No respiratory distress Chest status: Nontender Breath sounds: Normal Chest palpation: Normal - Cardiovascular Rhythm: Regular Heart sounds: Normal auscultation Murmur: No - Abdominal Inspection: Normal Distension: No distension Bowel sounds: Normal Tenderness: Nontender Organomegaly: No organomegaly - Back Back: Normal, Nontender - Extremities General upper extremity: Normal inspection General lower extremity: Normal inspection. No: Edema - Neurological Neuro grossly intact: Yes Orientation: AAOx4 Amor Coma Scale Eye Opening: Spontaneous [place] Coma Scale Verbal: Oriented [place] Coma Scale Motor: Obeys Commands Amor Coma Scale Total: 15 - Psychological Associated symptoms: Normal affect, Normal mood - Skin Skin Temperature: Warm Skin Moisture: Dry Skin Color: Normal Course - Re-evaluation Re-evalutation: 03/02/20 10:25 Vital signs patient resting comfortably. - Vital Signs Vital signs: Temp Pulse Resp BP Pulse Ox 98.4 F 70 18 241/109 H 99 03/02/20 09:00 03/02/20 09:00 03/02/20 09:00 03/02/20 10:38 03/02/20 09:00 03/02/20 10:25 Vital signs systolic diastolic hypertension. Patient's blood pressure requires repeating prior to discharge. - Diagnostic Test Radiology reviewed: Image reviewed Discharge - Discharge Clinical Impression: Dental caries, Hypertension Condition: Stable Disposition: HOME, SELF-CARE Instructions: [facility], Toothache ([facility]) Prescriptions: Amoxicillin 1 tab PO TID #30 tab Ibuprofen [Ibu] 800 mg PO TID PRN 7 Days #21 tablet PRN Reason: prn pain/swelling/fever Lisinopril/Hydrochlorothiazide [Lisinopril-Hctz 20-25 mg Tab] 1 each PO DAILY 30 Days #30 tablet Forms: Elevated Blood Pressure, Return to Work I personally performed the services described in the documentation, reviewed and edited the documentation which was dictated to the scribe in my presence, and it accurately records my words and actions.
[2020-03-02 10:39] VITALS: BP 241/109
== END 2020-03-02 10:38 | disposition home or self-care (01) ==
LOC: ER 08:46
DX: K02.9 Dental caries, unspecified (principal); I10 Essential (primary) hypertension; Z91.14 Patient's other noncompliance with medication regimen; Z90.49 Acquired absence of other specified parts of digestive tract
CPT/HCPCS: 99283